=== PATIENT | male | born 1960 | race Two or more races ===

== ENCOUNTER 2016-10-21 11:55 | Day surgery (SDC) | payer OTHER ==
[2016-10-16 17:16] LABS: HEMATOCRIT 43.4 % (40.0-51.0); HEMOGLOBIN 15.5 g/dL (13.6-17.8)
[2016-10-16 18:28] LABS: ASCORBIC ACID (UR NOT ORDER) NEG (NEG); BILIRUBIN, URINE NEGATIVE (NEG); KETONE, URINE TRACE MG/DL (NEG); LEUKOCYTE ESTERASE(NOT OR NEG (NEG); WBC (NOT ORDERED) (RFLEX) < 1 (0-5)
--- NOTE | ~2016-10-21 | OP ---
Record Of Operation [facility] [address] [place]. [address] NAME: TUNG CABRALES : 62 STATUS : [facility]#: [id number] AGE: 56 ADM/REG DATE : 10/21/16 MR#: [id number] REPORT SERV DATE: 10/21/16 DICTATED BY: DIMA NAVARRO JR. DATE: 10/21/16 REPORT STATUS : Draft TRANSCRIBED BY: JESUS DATE: 10/21/16 DATE OF PROCEDURE: 10/21/2016 PREOPERATIVE DIAGNOSIS: Right hydrocelectomy. POSTOPERATIVE DIAGNOSIS: Right spermatocelectomy, 6 cm in size. PROCEDURE PERFORMED: Right spermatocelectomy. COMPLICATIONS: None. CONSULTATIONS: None. ANESTHESIA: General with a laryngeal mask airway. SPECIMENS: Right spermatocele. DRAINS: None. ESTIMATED BLOOD LOSS: 5 mL. INDICATION: Mr. Cabrales is a 56-year-old gentleman, who comes today for treatment of what was felt to be a hydrocele in the office, however, there was some suspicion that this could be a spermatocele based on physical exam. PROCEDURE IN DETAIL: After the patient was identified, and proper informed consent was obtained, he was taken to the operating room. General anesthesia was performed without complication using a laryngeal mask airway. He was then prepped and draped in normal sterile fashion in the supine position. A transverse scrotal incision was made using a scalpel down to the tunica albuginea. The testicle was then delivered through the scrotal incision in the dartos, fascial fibers were swept off the testicle, exposing the testicle, and what appeared to be a spermatocele. I opened the tunic albuginea to expose the spermatocele at its length, inverted the hydrocele sac to expose the spermatocele, and dissected the spermatocele away from the hydrocele sac first, and then coming down from [id number], rolled the spermatocele off the vasculature of the testicle, down on to the tail of the epididymis where the spermatocele was attached. I then used hemostats and suture ligatures to ligate the neck of the spermatocele and any larger vascular structures that were leading on to the spermatocele itself. I then removed the spermatocele and inspected the area for hemostasis. He had very little tunic albuginea left to marsupialize, so, I simply cauterize the edges of the hydrocele sac and then carefully cauterizing any bleeding vessels along the spermatic cord. I carefully replaced the testicle in its natural position within the scrotal compartment. I irrigated the scrotal compartment and inspected for hemostasis one more time, and then closed the scrotal compartment using a 2-0 chromic gut running locking suture in the dartos fascia, and a non- locking running 3-0 chromic gut in the skin. Dermabond and a scrotal support with fluffs were used for dressing. The patient was awakened in the operating room and transferred to [address] [id number] NAME: TUNG CABRALES : 62 STATUS : [facility]#: [id number] AGE: 56 ADM/REG DATE : 10/21/16 MR#: [id number] REPORT SERV DATE: 10/21/16 DICTATED BY: DIMA NAVARRO JR. DATE: 10/21/16 REPORT STATUS : Draft TRANSCRIBED BY: JESUS DATE: 10/21/16 postanesthesia care unit. LEIA/JESUS Dima Navarro Jr., M.D. / [id number] CC: Dima Navarro Jr., M.D.
[~2016-10-21 11:55] MED LIST: *DENIES
== END 2016-10-21 17:51 | disposition home or self-care (01) ==
LOC: SDC 11:55
PROVIDERS: Urology
PROC: 0VBJ0ZZ Excision of Right Epididymis, Open Approach (ICD-10-PCS; principal; 2016-10-21 15:00)
DX: N43.41 Spermatocele of epididymis, single (principal); Z79.899 Other long term (current) drug therapy
CPT/HCPCS: 81001; 85014; 85018; 88304; 93005; A9270-GY; J0694; J2250; J2405; J3010